=== PATIENT | male | born 1940 | race Caucasian/White ===

== ENCOUNTER 2019-10-28 07:26 | Emergency (ER) | payer MEDICARE ==
[~2019-10-28] VITALS: Ht 172 cm; Wt 120.0 kg
[~2019-10-28 07:26] MED LIST: AC325T PO; ACID1TAB PO; ATEN25TA PO; Nephro-Vite PO; OXC5T PO; WARF6TAB PO; Warfarin Sod PO; [UNRECOGNIZED DRUG - CODE] PO
--- NOTE | 2019-10-28 07:45 | NUR ---
Patient escorted into Reverse Isolation Room 5 from his vehicle. Pt again instructed to put mask on. Pt was interviewed and gives a fairly limited poor history except his in [facility] for 3 weeks with Covid and he was diagnosed also. Pt has a couple pcs notebook paper with info of sx from back to September around start of sx 10/06, Pt recorded temperatures and O2 sats. Pt has been afefrile without fever reducers since 10/24/19. Pt has had temps to almost 102 at the initiation of sx. Pt has had SaO2 > 92%.
[2019-10-28] MEDS ORDERED: FURO40TA4 (07:56)
[2019-10-28] MEDS ORDERED: NF-BISOP5 (07:56)
[2019-10-28] MEDS ORDERED: ALLO100T (07:56)
--- NOTE | 2019-10-28 07:56 | ED Cough/URI ---
General Chief Complaint: Respiratory Problems Stated Complaint: SOB, COVID POSITIVE History of Present Illness Date Seen by Provider: Oct 28, 2019 Time Seen by Provider: 07:54 Initial Comments 79-year-old male presents to the ER with complaint of not feeling well and intermittent shortness of air for the past several weeks. Patient diagnosed COVID-19 and for the past several weeks has had low-grade fever with normal oxygenation monitored at home. His also with positive COVID-19 and admitted [facility] currently. Denies shortness of air rest, denies fever or chills, denies chest pain or overall getting worse. Symptoms are actually quite mild. Normal appetite with no abdominal pain, nausea or vomiting. Has been self quarantined Allergies and Home Medications Allergies Uncoded Allergies: nkma (Adverse Reaction, Mild, 09/22/14) Home Medications Acetaminophen 325 Mg Tab, 650 MG PO Q6H PRN for PAIN, (Reported) Azithromycin 250 Mg Tablet, 250 MG PO UD TAKE 2 TABLETS ON DAY ONE THEN TAKE 1 TABLET DAILY FOR FOUR MORE DAYS Prescribed by: SAM IRVIN on 10/28/19 0849 Calcium Carbonate 1,000 Mg Tab.chew, 1,000 MG PO BID, (Reported) Dexamethasone 6 Mg Tablet, 6 MG PO DAILY Prescribed by: SAM IRVIN on 10/28/19 0849 [Nephro-Delicia] , 1 TAB PO DAILY Prescribed by: TUNDE DOSS on 09/23/14 0817 Patient Home Medication List Home Medication List Reviewed: Yes Review of Systems Review of Systems Constitutional: see HPI; No dizziness, No fever (resolved); malaise; No weakness EENTM: no symptoms reported Respiratory: see HPI; No cough, No hemoptysis, No orthopnea; short of breath; No stridor, No wheezing Cardiovascular: No chest pain, No edema, No palpitations Gastrointestinal: No abdominal pain, No constipation, No diarrhea, No loss of appetite, No nausea, No vomiting Musculoskeletal: No back pain, No joint pain, No muscle pain Skin: see HPI; No lesions, No rash Past Xvieydi-Mzqyjv-Ayghlx Hx Past Med/Social Hx: Reviewed Nursing Past Med/Soc Hx Patient Social History Recent Foreign Travel: No Contact w/Someone Who Travel: No Immunizations Up To Date Tetanus Booster (TDap): Less than 5yrs Date of Pneumonia Vaccine: Sep 22, 2013 Past Medical History Reproductive Disorders: No Sexually Transmitted Disease: No HIV/AIDS: No Prostate Problems Loss of Vision: Denies Hearing Impairment: Hard of Hearing Psoriasis Family Medical History Arthritis Cardiovascular disease Cataracts Neoplasm No Family History of: AIDS Abdominal aortic aneurysm Ventura's disease Alcoholism Alzheimer's disease Aphasia Asthma Cancer of mouth Colon cancer Completed stroke Congenital disease Congenital heart disease Coronary thrombosis Cystic fibrosis Deafness or hearing loss Dementia Diabetes mellitus Drug abuse Dysphasia Fibrocystic disease of breast Gastroenteritis Glaucoma Headache disorder Hypercholesterolemia Hypertension Infertility Kidney disease Myocardial infarction Not obtainable due to adoption Osteoporosis Parkinson's disease Prostate cancer Psychosocial problem Respiratory disorder Seizure disorder Severe allergy Thyroid disease Tuberculosis Visual disorder Physical Exam Vital Signs - First Documented 10/28/19 07:45 Temp 36.2 Pulse 97 Resp 24 B/P (MAP) 130/64 (86) Pulse Ox 95 O2 Delivery Room Air Capillary Refill : Height: 6'2.00" Weight: 233lbs. 8.0oz. 105.234881ia; BMI Method: General Appearance: WD/WN, no apparent distress HEENT: PERRL/EOMI, normal ENT inspection Neck: non-tender, supple, normal inspection Respiratory: chest non-tender, lungs clear, no respiratory distress, no accessory muscle use; No crackles, No rales; rhonchi (faint); No wheezing Cardiovascular: regular rate, rhythm, no edema, no gallop, no JVD Gastrointestinal: non tender, soft Extremities: non-tender, normal inspection, no pedal edema Neurologic/Psychiatric: no motor/sensory deficits, alert, normal mood/affect, oriented x 3 Skin: normal color, warm/dry Focused Exam Lactate Level 10/28/19 08:35: Lactic Acid Level 1.18 Lactic Acid Level Laboratory Tests Test 10/28/19 08:35 Lactic Acid Level 1.18 MMOL/L (0.50-2.00) Progress/Results/Core Measures Suspected Sepsis SIRS Temperature: Pulse: Respiratory Rate: Laboratory Tests 10/28/19 08:35: White Blood Count 7.7 Blood Pressure / Mean: 10/28/19 08:35: Lactic Acid Level 1.18 Laboratory Tests 10/28/19 08:35: Creatinine 1.36H, Platelet Count 345, Total Bilirubin 0.8 Results/Orders Lab Results Laboratory Tests Test 10/28/19 08:35 Range/Units White Blood Count 7.7 4.3-11.0 10^3/uL Red Blood Count 4.42 4.35-5.85 10^6/uL Hemoglobin 14.4 13.3-17.7 G/DL Hematocrit 43 40-54 % Mean Corpuscular Volume 98 80-99 FL Mean Corpuscular Hemoglobin 33 25-34 PG Mean Corpuscular Hemoglobin Concent 33 32-36 G/DL Red Cell Distribution Width 13.3 10.0-14.5 % Platelet Count 345 130-400 10^3/uL Mean Platelet Volume 9.5 7.4-10.4 FL Neutrophils (%) (Auto) 76 H 42-75 % Lymphocytes (%) (Auto) 11 L 12-44 % Monocytes (%) (Auto) 10 0-12 % Eosinophils (%) (Auto) 1 0-10 % Basophils (%) (Auto) 0 0-10 % Neutrophils # (Auto) 5.9 1.8-7.8 X 10^3 Lymphocytes # (Auto) 0.9 L 1.0-4.0 X 10^3 Monocytes # (Auto) 0.8 0.0-1.0 X 10^3 Eosinophils # (Auto) 0.1 0.0-0.3 10^3/uL Basophils # (Auto) 0.0 0.0-0.1 10^3/uL Sodium Level 141 135-145 MMOL/L Potassium Level 4.1 3.6-5.0 MMOL/L Chloride Level 106 98-107 MMOL/L Carbon Dioxide Level 23 21-32 MMOL/L Anion Gap 12 5-14 MMOL/L Blood Urea Nitrogen 21 H 7-18 MG/DL Creatinine 1.36 H 0.60-1.30 MG/DL Estimat Glomerular Filtration Rate 51 BUN/Creatinine Ratio 15 Glucose Level 108 H 70-105 MG/DL Lactic Acid Level 1.18 0.50-2.00 MMOL/L Calcium Level 8.7 8.5-10.1 MG/DL Corrected Calcium 9.3 8.5-10.1 MG/DL Total Bilirubin 0.8 0.1-1.0 MG/DL Aspartate Amino Transf (AST/SGOT) 109 H 5-34 U/L Alanine Aminotransferase (ALT/SGPT) 112 H 0-55 U/L Alkaline Phosphatase 120 40-136 U/L Total Protein 6.1 L 6.4-8.2 GM/DL Albumin 3.2 3.2-4.5 GM/DL My Orders Orders - SAM IRVIN DO Chest 1 View Ap/Pa Only (10/28/19 07:53) Ed Iv/Invasive Line Start (10/28/19 08:18) Cbc With Automated Diff (10/28/19 08:18) Comprehensive Metabolic Panel (10/28/19 08:18) Lactic Acid Analyzer (10/28/19 08:18) Blood Culture (10/28/19 08:18) Vital Signs/I&O 10/28/19 10/28/19 10/28/19 07:45 08:30 08:45 Temp 36.2 36.2 Pulse 97 97 95 Resp 24 24 24 B/P (MAP) 130/64 (86) 131/80 124/79 Pulse Ox 95 95 95 O2 Delivery Room Air Room Air Room Air Capillary Refill : Progress Note : Progress Note Called and discussed with the hospitalist at [place], Dr. Armando who is currently treating patient's for COVID-19 related condition. Patient does not meet admission criteria, actually improving overall and is without fever or hypoxia or or dyspnea. Discussed outpatient treatment and agreed to treat with azithromycin as well as Decadron. Called patient's PCP, Dr. arteaga and spoke to his nurse. Advised that patient was being treated as an outpatient, explained that he was actually improving and clinically stable. Recommended follow-up chest x-ray as well as repeat labs in 2 weeks, patient will call to schedule appointment. Departure Impression Primary Impression: Viral pneumonia Disposition: 01 HOME, SELF-CARE Condition: Stable Departure-Patient Inst. Referrals: ARIEL ARTEAGA MD (PCP/Family) Primary Care Physician Patient Instructions: Coronavirus Disease 2019 (COVID-19) (DC) Scripts Dexamethasone (Decadron) 6 Mg Tablet 6 MG PO DAILY, #5 TAB Prov: CHAPISSTSAM ACUÑA DO 10/28/19 Azithromycin (Azithromycin) 250 Mg Tablet 250 MG PO UD, #6 TAB TAKE 2 TABLETS ON DAY ONE THEN TAKE 1 TABLET DAILY FOR FOUR MORE DAYS Prov: CHAPISSTINESAM DO 10/28/19 SAM IRVIN DO Oct 28, 2019 07:56
[2019-10-28] MEDS ORDERED: Vitamin D3 (07:58)
--- NOTE | 2019-10-28 08:18 | Diagnostic Imaging Report ---
INDICATION: Increasing shortness of breath. Patient is Covid positive. TIME OF EXAM: 8:00 a.m. No prior chest radiographs available for comparison. FINDINGS: The heart is enlarged. There are airspace infiltrates in the left upper and left lower lobe. There appears to be some patchy infiltrate in the right base as well. No significant effusion is seen. There is no pneumothorax. IMPRESSION: Bilateral airspace pulmonary infiltrates, greatest on the left consistent with pneumonia. Dictated by: Dictated on workstation # [id number]
[2019-10-28] MEDS ORDERED: AZIT250T12 PO (08:49)
[2019-10-28] MEDS ORDERED: DEXA6TAB6 PO (08:49)
[2019-10-28 08:54] LABS: BASOPHILS % (AUTO) 0 % (0-10); EOSINOPHILS % (AUTO) 1 % (0-10); HEMATOCRIT 43 % (40-54); HEMOGLOBIN 14.4 G/DL (13.3-17.7); LYMPHOCYTES # (AUTO) 0.9 X 10^3 (1.0-4.0); LYMPHOCYTES % (AUTO) 11 % (12-44); MEAN CORPUSCULAR HEMOGLOBIN 33 PG (25-34); MEAN CORPUSCULAR HGB CONC 33 G/DL (32-36); MEAN CORPUSCULAR VOLUME 98 FL (80-99); MEAN PLATELET VOLUME 9.5 FL (7.4-10.4); MONOCYTES % (AUTO) 10 % (0-12); NEUTROPHILS # (AUTO) 5.9 X 10^3 (1.8-7.8); NEUTROPHILS % (AUTO) 76 % (42-75); PLATELET COUNT 345 10^3/uL (130-400); RED CELL DISTRIBUTION WIDTH 13.3 % (10.0-14.5); WHITE BLOOD COUNT 7.7 10^3/uL (4.3-11.0)
[2019-10-28 08:55] LABS: EOSINOPHILS # (AUTO) 0.1 10^3/uL (0.0-0.3); MONOCYTES # (AUTO) 0.8 X 10^3 (0.0-1.0)
[2019-10-28 09:09] LABS: POTASSIUM 4.1 MMOL/L (3.6-5.0)
[2019-10-28 09:10] LABS: ALBUMIN 3.2 GM/DL (3.2-4.5); BILIRUBIN,TOTAL 0.8 MG/DL (0.1-1.0); CALCIUM 8.7 MG/DL (8.5-10.1); CREATININE SERUM 1.36 MG/DL (0.60-1.30); TOTAL PROTEIN 6.1 GM/DL (6.4-8.2)
[2019-10-28 09:45] VITALS: BP 130/79
--- NOTE | 2019-10-28 09:45 | NUR ---
Pt discharged at this time with review of findings and discharge instructions reviewed. Pt was instructed to please follow any instructions given as to Quarantine for 14 days since initial sx/dx given and to follow all instructions given by medical/healthcare providers. Pt to always wear mask as recommended by medical/CDC and as Governor of [facility] mandating. Pt does have prescriptions at [facility] and recommend someone picks these up for patient. Pt is to take medications as directed and in its entirety. Call to Dr Hurtado office to get a follow up appt in 2 weeks. They will likely repeat your CXR and labs in the future.
== END 2019-10-28 09:45 | disposition home or self-care (01) ==
LOC: EDUNIT# 07:26 → ER FS 07:29
DX: U07.1 COVID-19 (principal); J12.89 Other viral pneumonia; Z82.49 Family history of ischemic heart disease and other diseases of the circulatory system
CPT/HCPCS: 36415; 71045; 80053; 83605; 85025; 87040

== ENCOUNTER → 2019-11-07 | Outpatient (CLI) | payer MEDICARE ==
[~2019-11-07] MED LIST changes: +ALLO100T; +AZIT250T12 PO; +DEXA6TAB6 PO; +FURO40TA4; +NF-BISOP5; +Vitamin D3
--- NOTE | 2019-11-07 09:55 | Diagnostic Imaging Report ---
INDICATION: Back pain. TIME OF EXAM: 9:40 AM Curvature and alignment of the lumbar spine is normal. Vertebral body heights are maintained. No acute compression fracture is seen. Multilevel degenerative disc disease is identified with variable disc space narrowing and marginal spurring. Multilevel facet arthropathy. Abdominal aorta is heavily calcified. IMPRESSION: Lumbar spondylosis. No acute bony abnormality is detected. Dictated by: Dictated on workstation # [id number]
--- NOTE | 2019-11-07 09:55 | Diagnostic Imaging Report ---
INDICATION: Recent COVID positive. Time of exam: 9:37 AM Comparison is made with prior chest from 10/28/2019. Bilateral infiltrates appear significantly improved. There may be very minimal residual infiltrate left mid lung field. Right hemidiaphragm is chronically elevated. No effusion or pneumothorax is identified. IMPRESSION: Near-complete clearing of bilateral pulmonary infiltrates since exam 10 days earlier. There may be very minimal residual infiltrate left midlung. Dictated by: Dictated on workstation # [id number]
== END ==
LOC: RAD FS 09:27
PROVIDERS: ATTEND Family Medicine
DX: U07.1 COVID-19 (principal); R91.8 Other nonspecific abnormal finding of lung field; M47.816 Spondylosis without myelopathy or radiculopathy, lumbar region
CPT/HCPCS: 71046; 72100

== ENCOUNTER → 2020-01-19 | Outpatient (CLI) | payer MEDICARE ==
--- NOTE | 2020-01-19 12:31 | Diagnostic Imaging Report ---
INDICATION: Left knee pain. Time of exam 10:44 a.m. Three views of the left knee were obtained. Alignment is normal. Joint spaces are well maintained. No fracture, dislocation or effusion is seen. IMPRESSION: No acute bony abnormality is detected. Dictated by: Dictated on workstation # [id number]
== END ==
LOC: RAD FS 10:37
PROVIDERS: ATTEND Family Medicine
DX: M25.562 Pain in left knee (principal)
CPT/HCPCS: 73562

== ENCOUNTER 2022-05-24 10:28 | Emergency (ER) | payer MEDICARE ==
[~2022-05-24] VITALS: Ht 185 cm; Wt 116.5 kg
[2022-05-24 10:44] LABS: BASOPHILS # (AUTO) 0.1 10^3/uL (0.0-0.1); BASOPHILS % (AUTO) 1 % (0-10); EOSINOPHILS # (AUTO) 0.4 10^3/uL (0.0-0.3); EOSINOPHILS % (AUTO) 6 % (0-10); HEMATOCRIT 42 % (40-54); HEMOGLOBIN 14.2 g/dL (13.3-17.7); LYMPHOCYTES # (AUTO) 1.4 10^3/uL (1.0-4.0); LYMPHOCYTES % (AUTO) 19 % (12-44); MEAN CORPUSCULAR HEMOGLOBIN 34 pg (25-34); MEAN CORPUSCULAR HGB CONC 34 g/dL (32-36); MEAN CORPUSCULAR VOLUME 100 fL (80-99); MEAN PLATELET VOLUME 10.1 fL (9.0-12.2); MONOCYTES # (AUTO) 0.7 10^3/uL (0.0-1.0); MONOCYTES % (AUTO) 10 % (0-12); NEUTROPHILS # (AUTO) 4.7 10^3/uL (1.8-7.8); NEUTROPHILS % (AUTO) 65 % (42-75); PLATELET COUNT 161 10^3/uL (130-400); WHITE BLOOD COUNT 7.3 10^3/uL (4.3-11.0)
--- NOTE | 2022-05-24 10:52 | ED Neurological Problem ---
General Chief Complaint: Neuro-Stroke Like Symptoms Stated Complaint: STROKE LIKE SYMPTOMS Source: patient, EMS, spouse (His girlfriend) Exam Limitations: physical impairment (expressive aphasia) History of Present Illness Date Seen by Provider: May 24, 2022 Time Seen by Provider: 10:28 Initial Comments 81-year-old male presenting by EMS from home due to complaints of expressive aphasia and weakness on the right side. He states that he was doing fine earlier this morning but around 8 AM he noticed that he was having trouble speaking and weakness with trying to stand. He denies having any pain, headache, vision change, difficulty swallowing, cough, nausea, vomiting, abdominal pain. He has continued difficulty expressing words. Timing/Duration: 1-3 hours (since 8 am) Severity: mild Associated Symptoms: No confusion, No fatigue, No fever/chills, No loss of consciousness, No muscle spasms, No nausea/vomiting, No numbness in legs/feet, No paresthesia, No ringing in ears, No seizures, No sleepy, No slurred speech, No tingling in legs/feet; trouble walking (feels weak on right side); No vision changes Allergies and Home Medications Allergies Coded Allergies: No Known Drug Allergies (Unverified , 05/24/22) Patient Home Medication List Home Medication List Reviewed: Yes Acetaminophen (Tylenol Tablet) 325 Mg Tab, 650 MG PO Q6H PRN for PAIN, (Reported) Entered as Reported by: TUNDE DOSS on 09/23/14816 Allopurinol (Allopurinol) 100 Mg Tablet, (Reported) Entered as Reported by: HILARIA SANCHEZ on 10/28/19 075 Azithromycin (Azithromycin) 250 Mg Tablet, 250 MG PO UD Prescribed by: SAM IRVIN on 10/28/19 0849 Bisoprolol Fumarate (Bisoprolol Fumarate) 5 Mg Tablet, (Reported) Entered as Reported by: HILARIA SANCHEZ on 10/28/19 075 Calcium Carbonate (Calcium Carbonate) 1,000 Mg Tab.chew, 1,000 MG PO BID, (Reported) Entered as Reported by: TUNDE DOSS on 09/23/14816 Dexamethasone (Decadron) 6 Mg Tablet, 6 MG PO DAILY Prescribed by: SAM IRVIN on 10/28/19 0849 Furosemide (Furosemide) 40 Mg Tablet, (Reported) Entered as Reported by: HILARIA SANCHEZ on 10/28/19 0756 [Nephro-Delicia] , 1 TAB PO DAILY Prescribed by: TUNDE DOSS on 09/23/14 0817 [Vitamin D3] , (Reported) Entered as Reported by: HILARIA SANCHEZ on 10/28/19 0758 Review of Systems Review of Systems Constitutional: no symptoms reported Eyes: No Symptoms Reported Ears, Nose, Mouth, Throat: no symptoms reported Respiratory: no symptoms reported Cardiovascular: no symptoms reported Gastrointestinal: no symptoms reported Genitourinary: no symptoms reported Musculoskeletal: no symptoms reported Skin: no symptoms reported Psychiatric/Neurological: See HPI Past Vofupjt-Wjhagy-Kmietq Hx Immunizations Up To Date Tetanus Booster (TDap): Less than 5yrs Seasonal Allergies Seasonal Allergies: No Past Medical History Surgery/Hospitalization HX: Hypertension, Gout, Congestive Heart Failure Respiratory: No Cardiac: Yes (A FIB DURING HOSPITAL STAY IN [place]) Atrial Fibrillation, Hypertension Neurological: Yes (MILD COGNITIVE IMPAIRMENT) Dementia Reproductive Disorders: No Sexually Transmitted Disease: No HIV/AIDS: No Genitourinary: No Prostate Problems Gastrointestinal: No Musculoskeletal: Yes Arthritis, Fractures, Gout Endocrine: No HEENT: No Loss of Vision: Denies Hearing Impairment: Hard of Hearing Cancer: No Psychosocial: No Integumentary: Yes Psoriasis Blood Disorders: No Family Medical History Arthritis Cardiovascular disease Cataracts Neoplasm No Family History of: AIDS Abdominal aortic aneurysm Meigs's disease Alcoholism Alzheimer's disease Aphasia Asthma Cancer of mouth Colon cancer Completed stroke Congenital disease Congenital heart disease Coronary thrombosis Cystic fibrosis Deafness or hearing loss Dementia Diabetes mellitus Drug abuse Dysphasia Fibrocystic disease of breast Gastroenteritis Glaucoma Headache disorder Hypercholesterolemia Hypertension Infertility Kidney disease Myocardial infarction Not obtainable due to adoption Osteoporosis Parkinson's disease Prostate cancer Psychosocial problem Respiratory disorder Seizure disorder Severe allergy Thyroid disease Tuberculosis Visual disorder Physical Exam Vital Signs Vital Signs - First Documented 05/24/22 10:30 Temp 36.2 Pulse 62 Resp 16 B/P (MAP) 162/79 (106) Pulse Ox 96 O2 Delivery Room Air Capillary Refill : Height, Weight, BMI Height: 6'2.00" Weight: 233lbs. 8.0oz. [id number]; 40.00 BMI Method: General Appearance: WD/WN, mild distress, obese HEENT: PERRL/EOMI, normal ENT inspection, pharynx normal Neck: non-tender, full range of motion, supple, normal inspection; No carotid bruit Respiratory: chest non-tender, lungs clear, normal breath sounds, no respiratory distress, no accessory muscle use Cardiovascular: normal peripheral pulses, irregularly irregular Gastrointestinal: normal bowel sounds, non tender, soft, no pulsatile mass Extremities: normal range of motion, non-tender, normal capillary refill Neurologic/Psychiatric: alert Crainal Nerves: normal hearing; No normal speech; PERRL, abnormal speech (expressive aphasia) Coordination/Gait: positive Romberg's sign Motor/Sensory: no sensory deficit; No pronator drift (R), No pronator drift (L) Skin: normal color, warm/dry Stroke Onset of Symptoms Date of Onset of Symptoms: May 24, 2022 Time of Symptom Onset: 08:00 Onset of Symptoms: Yes NIH Stroke Scale Assessment Select: Initial Level of Consciousness: 0=Alert (0), Level of Consciousness- Questions: 2=Answer neither question (2), LOC Commands: 0=Performs both tasks (0), Gaze: Normal (0), Visual Jolly: 0=No visual loss (0), Facial Movement (Facial Paresis): 0=Normal symmetrical mnt (0), Motor Function-Arms Right: 0=No drift (0), Motor Function-Arms Left: 0=No drift (0), Motor Function-Legs Right: 0=No drift (0), Motor Function-Legs Left: 0=No drift (0), Limb Ataxia: 0=Absent (0), Sensory: 0=Normal:no loss (0), Best Language: 1=Mild to moderat aphasia (1), Dysarthria: 0=Normal (0), Extinction & Inattention: 0=No abnormality (0), Total: 3 Stroke Thrombolytic Exclusion Age 18 or Over: Yes Acute intenal hemorrhage: No History of CVA: No Uncontrolled Coagulation Defec: No Intracranial Hemorrhage: No Severe Hypertension: No GI or Bleed: No Subarachnoid Hemorrhage: No Intracranial Neoplasm/Aneurysm: No Oral Anticoagulants: No Surgery or Trauma: No Puncture of Non-Compressible V: No Recent CPR: No Diabetic Hemorrhagic Retinopat: No Organ Biopsy: No Recent Obstetric Delivery: No Glucose: No Significant Hepatic Dysfunctio: No NIH Stoke Scale >22: No Bacterial Endocarditis: No Pericarditis: No Improving Symptoms: No Platelets: No TPA Contraindication: No IV - TPa Received IV - TPa Procedure Performed?: Yes IV - TPa Date: May 24, 2022 IV - TPa Time: 11:25 Progress/Results/Core Measures Results/Orders Lab Results Laboratory Tests Test 05/24/22 10:33 05/24/22 10:40 05/24/22 11:11 Range/Units Glucometer 100 70-110 MG/DL White Blood Count 7.3 4.3-11.0 10^3/uL Red Blood Count 4.22 L 4.30-5.52 10^6/uL Hemoglobin 14.2 13.3-17.7 g/dL Hematocrit 42 40-54 % Mean Corpuscular Volume 100 H 80-99 fL Mean Corpuscular Hemoglobin 34 25-34 pg Mean Corpuscular Hemoglobin Concent 34 32-36 g/dL Red Cell Distribution Width 14.1 10.0-14.5 % Platelet Count 161 130-400 10^3/uL Mean Platelet Volume 10.1 9.0-12.2 fL Immature Granulocyte % (Auto) 0 % Neutrophils (%) (Auto) 65 42-75 % Lymphocytes (%) (Auto) 19 12-44 % Monocytes (%) (Auto) 10 0-12 % Eosinophils (%) (Auto) 6 0-10 % Basophils (%) (Auto) 1 0-10 % Neutrophils # (Auto) 4.7 1.8-7.8 10^3/uL Lymphocytes # (Auto) 1.4 1.0-4.0 10^3/uL Monocytes # (Auto) 0.7 0.0-1.0 10^3/uL Eosinophils # (Auto) 0.4 H 0.0-0.3 10^3/uL Basophils # (Auto) 0.1 0.0-0.1 10^3/uL Immature Granulocyte # (Auto) 0.0 0.0-0.1 10^3/uL Prothrombin Time 13.5 12.2-14.7 SEC INR Comment 1.0 0.8-1.4 Activated Partial Thromboplast Time 58 H 24-35 SEC Sodium Level 143 135-145 MMOL/L Potassium Level 4.5 3.6-5.0 MMOL/L Chloride Level 108 H 98-107 MMOL/L Carbon Dioxide Level 27 21-32 MMOL/L Anion Gap 8 5-14 MMOL/L Blood Urea Nitrogen 22 H 7-18 MG/DL Creatinine 1.54 H 0.60-1.30 MG/DL Estimat Glomerular Filtration Rate 45 BUN/Creatinine Ratio 14 Glucose Level 97 70-105 MG/DL Calcium Level 8.8 8.5-10.1 MG/DL Corrected Calcium 8.9 8.5-10.1 MG/DL Total Bilirubin 0.7 0.1-1.0 MG/DL Aspartate Amino Transf (AST/SGOT) 23 5-34 U/L Alanine Aminotransferase (ALT/SGPT) 20 0-55 U/L Alkaline Phosphatase 99 40-136 U/L Troponin I < 0.30 <0.30 NG/ML Total Protein 6.1 L 6.4-8.2 GM/DL Albumin 3.9 3.2-4.5 GM/DL Urine Color YELLOW Urine Clarity CLOUDY Urine pH 7.0 5-9 Urine Specific Alsey 1.015 L 1.016-1.022 Urine Protein NEGATIVE NEGATIVE Urine Glucose (UA) NEGATIVE NEGATIVE Urine Ketones NEGATIVE NEGATIVE Urine Nitrite POSITIVE H NEGATIVE Urine Bilirubin NEGATIVE NEGATIVE Urine Urobilinogen 0.2 < = 1.0 MG/DL Urine Leukocyte Esterase 1+ H NEGATIVE Urine RBC (Auto) NEGATIVE NEGATIVE Urine RBC 5-10 H /HPF Urine WBC 50-100 H /HPF Urine Crystals NONE /LPF Urine Bacteria LARGE H /HPF Urine Casts NONE /LPF Urine Mucus NEGATIVE /LPF Urine Culture Indicated YES My Orders Orders - ANN MOFFETT MD Cbc With Automated Diff (05/24/22 10:31) Protime With Inr (05/24/22 10:31) Partial Thromboplastin Time (05/24/22 10:31) Comprehensive Metabolic Panel (05/24/22 10:31) Troponin I Fs (05/24/22 10:31) Ua Culture If Indicated (05/24/22 10:31) Chest 1 View Ap/Pa Only (05/24/22 10:31) Ekg Tracing (05/24/22 10:31) Accucheck Stat ONCE (05/24/22 10:31) Ed Iv/Invasive Line Start (05/24/22 10:31) Vital Signs Stroke Patient Q15M (05/24/22 10:31) O2 (05/24/22 10:31) Intake & Output 06,14,22 (05/24/22 10:31) Monitor-Rhythm Ecg Trace Only (05/24/22 10:31) Dysphagia Screening Tool Q10MX1 (05/24/22 10:31) Ct Head Wo-R/O Stroke (05/24/22 10:30) Ct Angio Head/Neck (05/24/22 10:52) Iohexol Injection (Omnipaque 350 Mg/Ml 1 (05/24/22 11:00) Received Contrast (Hold Metformin- Contr (05/24/22 11:00) Ns (Ivpb) (Sodium Chloride 0.9% Ivpb Bag (05/24/22 11:00) Tenecteplase (Tnkase) (05/24/22 11:15) Tenecteplase (Tnkase) (05/24/22 11:15) Post Thrombolytic Adminstratio (05/24/22 11:13) Post Thrombolytic Adminstratio (05/24/22 11:13) Urine Culture (05/24/22 11:11) Tenecteplase (Tnkase) (05/24/22 11:16) Ceftriaxone 1 Gm Pre-Mix (Rocephin 1 Gm (05/24/22 11:30) Hydralazine Injection (Apresoline Inject (05/24/22 11:41) Medications Given in ED Current Medications Medications Dose Ordered Sig/Julieta Route Start Time Stop Time Status Last Admin Dose Admin Hydralazine HCl 20 mg STK-MED ONCE .ROUTE 05/24/22 11:41 05/24/22 11:43 DC 05/24/22 11:42 10 MG Iohexol 100 ml ONCE ONCE IV 05/24/22 11:00 05/24/22 11:01 DC 05/24/22 11:28 80 ML Sodium Chloride 100 ml ONCE ONCE IV 05/24/22 11:00 05/24/22 11:01 DC 05/24/22 11:28 100 ML Tenecteplase 25 mg ONCE ONCE IV 05/24/22 11:15 05/24/22 11:16 DC 05/24/22 11:44 25 MG Vital Signs/I&O 05/24/22 05/24/22 05/24/22 05/24/22 10:30 11:02 11:44 12:10 Temp 36.2 36.2 Pulse 62 62 63 71 Resp 16 16 16 B/P (MAP) 162/79 (106) 162/79 166/98 158/64 Pulse Ox 96 96 97 O2 Delivery Room Air Room Air Progress Progress Note #1: Progress Note Potential life-threatening or debilitating diagnosis of acute ischemic stroke, acute hemorrhagic stroke, myocardial infarction, sepsis, intracranial mass or tumor. On arrival to the emergency department he was taken immediately into the radiology suite to have a stat CT scan of his head without contrast to evaluate for acute intracranial hemorrhage or bleeding. On my review and personal interpretation I did not appreciate any acute bleeding or hemorrhage. His initial NIH scale was 3 as he got 2 points off for not being able to answer his age and the month and one-point off for expressive aphasia. Order comprehensive metabolic profile, complete blood count, clotting factors, troponin, urinalysis, electrocardiogram, chest x-ray, cardiac telemetry. Initial cardiac telemetry on my interpretation shows atrial fibrillation with a rate of 62. His electrocardiogram shows atrial fibrillation with artifact and slow ventricular response with a rate of 52 bpm. He had no acute ST elevation. There is no prior tracing for comparison. On my review of his 1 view chest x-ray he showed some signs of cardiomegaly and increased pulmonary vascular congestion but appeared stable from imaging in October 2019. Progress Note #2: Progress Note 1052 I spoke with radiologist Dr. Dwyer About the CT head without contrast. He advised that he did not appreciate any acute intracranial hemorrhage or acute process but had some old microvascular changes. 1104 after updating the patient and his girlfriend about the findings and the plan of treatment for acute stroke I called [facility] stroke neurologist for consultation. I spoke with Dr. Adams, the stroke neurologist distribution field engineer, and reviewed the presentation, vital signs, NIHSS and initial labs and CT head witho ut contrast. As he is just over 3 hours from symptom onset she recommended that he have TNKase administered provided he consented to it and felt that his deficit was severe enough and debilitating enough that he would want to risk having intracranial hemorrhage from treatment. She felt like we could go up to 4-1/2 hours if needed for treatment but the longer we wait then he has in creasing risk of bleeding. I have reviewed with the patient about the risks of bleeding and complications from having the TNKase. All his questions were answered and he verbally consented to have TNKase administered. He was currently in radiology when I was speaking with him. After finishing speaking with him and getting his consent I verified with the nurses that he needed to have TNKase administered. 1124 I made a call to [facility] through the [facility] access center. I spoke with ANDI Starr. He took basic information and tried to connect me with the plate glass polisher but they were not available at that moment so he called me back at 1153 and I spoke with nurse practitioner Kristy for the plate glass polisher. I reviewed the case and presentation as well as test findings and that we were administering TNKase on recommendation from Dr. Adams neurologist at [facility]. As the patient and family were wanting to go to [facility] not up to I called the [facility] access center. They patient also had findings for new onset atrial fibrillation but was rate controlled. He has findings for urinary tract infection as he has nitrites, leukocyte esterase and bacteria with white blood cells in his urine. I did order a 1 g dose of Rocephin IV to help treat for this. He was getting the TNKase as I was working on contacting staff at [facility]. After reviewing the tests and findings with Kristy she accepted at [address] Woods for the patient to be transferred. His labs showed he has complete blood count without acute significant abnormality for his Hemoglobin or platelets. Comprehensive Metabolic profile shows renal insufficiency with a creatinine of 1.54 and a GFR of 45. His troponin was negative at less than 0.3 to help point away from acute myocardial infarction. His urinalysis was positive for nitrates, leukocyte esterase, 50- 100 white blood cells, bacteria. Will administer Rocephin 1 g IV for UTI. His clotting factors showed a normal INR of 1 and he had PTT of 58. 1218 after administering the TNKase the patient was very quickly started to have improved aphasia and felt like the weakness on his right side was resolving as well. His NIH stroke scale now is 0. ANDI Starr from [facility] called back and gave room number ICU 25 for the patient. The med flight helicopter transport should be landing any moment to transport the patient to [facility]. Initial ECG Impression Date: May 24, 2022 Initial ECG Impression Time: 10:45 Initial ECG Rate: 52 Initial ECG Rhythm: A Fib/Flutter Initial ECG Comparisson: No Previous ECG Available Comment My personal interpretation and review of his electrocardiogram shows atrial fibrillation with slow ventricular response and a rate of 52 bpm. He has no acute ST elevation. QT interval 426 ms with a QTc interval 406 ms. There is no prior tracing available for comparison. Diagnostic Imaging Diagonstic Imaging: Xray Plain Films/CT/US/NM/MRI: chest Comments [facility] [place] [place] NAME: ARIEL MARX [facility] REC#: [id number] PT STATUS: REG ER : 1940 PHYSICIAN: ANN MOFFETT MD ADMIT DATE: 05/24/22/ER FS Draft Date of Exam:05/24/22 CHEST 1 VIEW AP/PA ONLY INDICATION: dysphagia, dysarthria, expressive aphasia. TECHNIQUE: Single view chest 10:44 AM. CORRELATION STUDY: 11/07/2019 FINDINGS: Heart size enlarged but stable. Vasculature within normal limits. Unchanged moderately elevated right diaphragm. Left lung base is somewhat obscured by the cardiac enlargement. Lungs appear generally clear. IMPRESSION: 1. Cardiac enlargement without failure. Unchanged elevated right diaphragm. Dictated on workstation # [id number] Dict: 05/24/22 1056 Trans: 05/24/22 1102 [facility] [id number] Interpreted by: PAMELA ESTEVEZ DO Electronically signed by: Reviewed: Reviewed by Me (I reviewed radiologist report that 1100) Diagonstic Imaging: CT Plain Films/CT/US/NM/MRI: head Comments [facility] [place], [place] NAME: ARIEL MARX [facility] REC#: [id number] PT STATUS: REG ER : 1940 PHYSICIAN: ANN MOFFETT MD ADMIT DATE: 05/24/22/ER FS Signed Date of Exam:05/24/22 CT HEAD WO-R/O STROKE EXAMINATION: CT head without contrast. TECHNIQUE: Multiple contiguous axial images were obtained through the brain without the use of intravenous contrast. All CT scans use one or more of the following dose optimizing techniques: automated exposure control, MA and/or KvP adjustment based on patient size and exam type or iterative reconstruction. HISTORY: Weakness, expressive dysphasia. COMPARISON: None available. FINDINGS: Mild diffuse cerebral volume loss with proportional enlargement of the ventricles and sulci. Mild hypodensities throughout the supratentorial white matter of both cerebral hemispheres. No acute intracranial hemorrhage or abnormal extra-axial fluid collections are present. Calcification of the intracranial ICAs. No hyperdense vessel. The calvarium is intact. The mastoid air cells are clear. The visualized paranasal sinuses are clear. The orbits are normal. IMPRESSION: 1. No acute intracranial abnormality. 2. Chronic microangiopathy and volume loss. Results communicated to Dr. Moffett by Dr. Cesar Dwyer at 10:52 AM on 05/24/2022. Dictated by: Dictated on workstation # [id number] Dict: 05/24/22 1049 Trans: 05/24/22 1055 CV [id number] Interpreted by: HARVEY DWYER DO Electronically signed by: HARVEY DWYER DO 05/24/22 1055 Reviewed: Reviewed by Me, Discussed w/Radiologist (I reviewed the radiologist report and discussed that with radiologist Dr. Dwyer at 1052) Diagonstic Imaging: CT (angiography) Plain Films/CT/US/NM/MRI: head (and neck) Comments [facility] [place] NAME: ARIEL MARX Rupinder [facility] REC#: [id number] PT STATUS: REG ER : 1940 PHYSICIAN: ANN MOFFETT MD ADMIT DATE: 05/24/22/ER FS Signed Date of Exam:05/24/22 CT ANGIO HEAD/NECK EXAMINATION: CT angiography head and neck with and without contrast. TECHNIQUE: After intravenous administration of contrast, thin section axial CT angiography of the head and neck was performed to screen for LVO, and multiple reformats including MIP reconstructions. Postcontrast CT of the head was also obtained. All CT scans use one or more of the following dose optimizing techniques: automated exposure control, MA and/or KvP adjustment based on a patient size and exam type, or iterative reconstruction. CT angiogram was post-processed using RAPID LVO detection to include quantitative measurements of cerebral blood flow and automated results notification to the stroke and/or neurointerventional team. HISTORY: expressive aphasia, right sided weakness since 8 am COMPARISON: 05/24/2022 FINDINGS: HEAD: Anterior circulation: Calcified plaque within the cavernous portions of the bilateral ICAs without significant stenosis. The anterior and middle cerebral arteries show no stenosis or intraluminal filling defects. No anterior circulation aneurysms are present. Posterior circulation: The visualized distal vertebral arteries are patent to the vertebrobasilar junction. The basilar artery and both posterior cerebral arteries are widely patent without stenosis. No posterior circulation aneurysms are present. Please see same day noncontrast CT head for discussion of nonvascular findings. No suspicious enhancement. NECK: Arch: Conventional branching of the aortic arch. The visualized subclavian arteries are patent without stenosis. Right: There is calcified and noncalcified plaque within the distal right common carotid artery with significant narrowing caliber at the level of the bifurcation. The external carotid artery and distal internal carotid artery are patent. The estimated internal carotid stenosis by NASCET criteria is 20%. The right vertebral artery is patent to the level of the vertebrobasilar junction. Left: The left common carotid, internal carotid, and external carotid arteries are widely patent without stenosis or dissection. Complex present within the distal common carotid artery and carotid bifurcation. The estimated internal carotid stenosis by NASCET criteria is 0%. The left vertebral artery is patent to the level of the vertebrobasilar junction. Other: The visualized thyroid gland is unremarkable. The cervical soft tissues are unremarkable. The visualized upper lungs and mediastinum are normal. Degenerative changes of the cervical spine. IMPRESSION: 1. Normal vasculature in the head and neck without large vessel occlusion. 2. Atherosclerosis with 20% stenosis of the proximal right internal carotid artery by NASCET criteria. Dictated by: Dictated on workstation # [id number] Dict: 05/24/22 1139 Trans: 05/24/22 1204 CV [id number] Interpreted by: HARVEY DWYER DO Electronically signed by: HARVEY DWYER DO 05/24/22 1204 Reviewed: Reviewed by Me (I reviewed radiologist report at 1211) Critical Care Note Critical Care Total Time (minutes) 60 minutes Progress A total of 60 minutes of critical care time was spent with the patient. Time excludes separately billable procedures. Time was spent obtaining history from patient and EMS and girlfriend as well as [facility], ordering tests and reviewing results, ordering interventions and reviewing response, discussion with consultants, documentation in the chart. Patient was at risk of neurologic compromise and worsening condition with findings for an acute stroke. He also is at risk for acute coronary syndrome with new onset atrial fibrillation. He required my immediate and direct intervention and monitoring to help manage his condition. Departure Impression Primary Impression: Acute ischemic stroke Additional Impressions: Expressive aphasia New onset atrial fibrillation Acute right-sided weakness Acute cystitis without hematuria Disposition: 02 XFER SHT-TRM HOSP Condition: Critical Transfer Transfer Reason: Exceeds level of care (Needs Neurologist and monitoring for acute stroke with TnKase administration) Time Spoke to Accepting Phy: 11:58 Transfer Progress Notes 1124 I made a call to [facility] through the [facility] access center. I spoke with ANDI Starr. He took basic information and tried to connect me with the plate glass polisher but they were not available at that moment so he called me back at 1153 and I spoke with nurse practitioner Kristy for the plate glass polisher. I reviewed the case and presentation as well as test findings and that we were administering TNKase on recommendation from Dr. Adams neurologist at [facility]. As the patient and family were wanting to go to [facility] not up to I called the [facility] access center. They patient also had findings for new onset atrial fibrillation but was rate controlled. He has findings for urinary tract infection as he has nitrites, leukocyte esterase and bacteria with white blood cells in his urine. I did order a 1 g dose of Rocephin IV to help treat for this. He was getting the TNKase as I was working on contacting staff at [facility]. After reviewing the tests and findings with Kristy she accepted at [address] Woods for the patient to be transferred. Transfer Facility: [facility] Method of Transfer: Air Departure-Patient Inst. Referrals: SELF,ARIEL PIPER (PCP/Family) Primary Care Physician ANN MOFFETT MD May 24, 2022 10:52
[2022-05-24 11:00] LABS: PROTHROMBIN TIME PATIENT 13.5 SEC (12.2-14.7)
[2022-05-24] MEDS ORDERED: HOLD METFORMIN - RECEIVED CONTRAST 20 ML VIAL IV SCH (11:00)
[2022-05-24] MEDS ORDERED: IOHEXOL 350 MG/ML 100 ML (OMNIPAQUE 350) VIAL IV ONE (11:00)
[2022-05-24] MEDS ORDERED: NS 100 ML (IVPB) BAG IV ONE (11:00)
[2022-05-24 11:02] VITALS: BP 162/79
--- NOTE | 2022-05-24 11:03 | Diagnostic Imaging Report ---
INDICATION: dysphagia, dysarthria, expressive aphasia. TECHNIQUE: Single view chest 10:44 AM. CORRELATION STUDY: 11/07/2019 FINDINGS: Heart size enlarged but stable. Vasculature within normal limits. Unchanged moderately elevated right diaphragm. Left lung base is somewhat obscured by the cardiac enlargement. Lungs appear generally clear. IMPRESSION: 1. Cardiac enlargement without failure. Unchanged elevated right diaphragm. Dictated by: Dictated on workstation # [id number]
[2022-05-24 11:08] LABS: ALANINE AMINOTRANSFERASE 20 U/L (0-55); ALBUMIN 3.9 GM/DL (3.2-4.5); ALKALINE PHOSPHATASE 99 U/L (40-136); BILIRUBIN,TOTAL 0.7 MG/DL (0.1-1.0); BUN/CREATININE RATIO 14; CALCIUM 8.8 MG/DL (8.5-10.1); CARBON DIOXIDE 27 MMOL/L (21-32); CHLORIDE 108 MMOL/L (98-107); CREATININE SERUM 1.54 MG/DL (0.60-1.30); GFR ESTIMATED 45; GLUCOSE 97 MG/DL (70-105); POTASSIUM 4.5 MMOL/L (3.6-5.0); SODIUM 143 MMOL/L (135-145); TOTAL PROTEIN 6.1 GM/DL (6.4-8.2)
[2022-05-24] MEDS ORDERED: TENECTEPLASE 50 MG VIAL IV ONE ×3 (11:15→11:16)
[2022-05-24 11:16] LABS: BILIRUBIN,URINE NEGATIVE (NEGATIVE); COLOR,URINE YELLOW; GLUCOSE, URINE (UA) NEGATIVE (NEGATIVE); KETONES,URINE NEGATIVE (NEGATIVE); LEUKOCYTE ESTERASE ,URINE 1+ (NEGATIVE); NITRITE,URINE POSITIVE (NEGATIVE); PROTEIN,URINE NEGATIVE (NEGATIVE)
[2022-05-24 11:19] LABS: BACTERIA,URINE LARGE /HPF; CLARITY,URINE CLOUDY; WBC,URINE 50-100 /HPF
[2022-05-24] MEDS ORDERED: cefTRIAXone 1 GM PRE-MIX 50 ML IV STA (11:30)
[2022-05-24] MEDS ORDERED: hydrALAZINE (APESOLINE) 20 MG/ML VIAL ONE (11:41)
--- NOTE | 2022-05-24 11:50 | Diagnostic Imaging Report ---
EXAMINATION: CT angiography head and neck with and without contrast. TECHNIQUE: After intravenous administration of contrast, thin section axial CT angiography of the head and neck was performed to screen for LVO, and multiple reformats including MIP reconstructions. Postcontrast CT of the head was also obtained. All CT scans use one or more of the following dose optimizing techniques: automated exposure control, MA and/or KvP adjustment based on a patient size and exam type, or iterative reconstruction. CT angiogram was post-processed using RAPID LVO detection to include quantitative measurements of cerebral blood flow and automated results notification to the stroke and/or neurointerventional team. HISTORY: expressive aphasia, right sided weakness since 8 am COMPARISON: 05/24/2022 FINDINGS: HEAD: Anterior circulation: Calcified plaque within the cavernous portions of the bilateral ICAs without significant stenosis. The anterior and middle cerebral arteries show no stenosis or intraluminal filling defects. No anterior circulation aneurysms are present. Posterior circulation: The visualized distal vertebral arteries are patent to the vertebrobasilar junction. The basilar artery and both posterior cerebral arteries are widely patent without stenosis. No posterior circulation aneurysms are present. Please see same day noncontrast CT head for discussion of nonvascular findings. No suspicious enhancement. NECK: Arch: Conventional branching of the aortic arch. The visualized subclavian arteries are patent without stenosis. Right: There is calcified and noncalcified plaque within the distal right common carotid artery with significant narrowing caliber at the level of the bifurcation. The external carotid artery and distal internal carotid artery are patent. The estimated internal carotid stenosis by NASCET criteria is 20%. The right vertebral artery is patent to the level of the vertebrobasilar junction. Left: The left common carotid, internal carotid, and external carotid arteries are widely patent without stenosis or dissection. Complex present within the distal common carotid artery and carotid bifurcation. The estimated internal carotid stenosis by NASCET criteria is 0%. The left vertebral artery is patent to the level of the vertebrobasilar junction. Other: The visualized thyroid gland is unremarkable. The cervical soft tissues are unremarkable. The visualized upper lungs and mediastinum are normal. Degenerative changes of the cervical spine. IMPRESSION: 1. Normal vasculature in the head and neck without large vessel occlusion. 2. Atherosclerosis with 20% stenosis of the proximal right internal carotid artery by NASCET criteria. Dictated by: Dictated on workstation # [id number]
[2022-05-24 12:10] VITALS: BP 158/64
== END 2022-05-24 12:37 | disposition short-term general hospital (02) ==
LOC: EDUNIT# 10:28 → ER FS 10:30
DX: I63.89 Other cerebral infarction (principal); G81.91 Hemiplegia, unspecified affecting right dominant side; I11.0 Hypertensive heart disease with heart failure; I50.9 Heart failure, unspecified; I48.91 Unspecified atrial fibrillation; N30.00 Acute cystitis without hematuria; R29.700 NIHSS score 0
CPT/HCPCS: 36415; 70450; 70496; 70498; 71045; 80053; 81000; 82947; 84484; 85025; 85610; 85730; 87077; 87088; 92977; 93005; 93041; Q9967